=== PATIENT | female | born 1945 | race Caucasian/White ===

== ENCOUNTER → 2023-11-08 11:57 | Outpatient (CLI) | payer MEDICARE, SELFPAY ==
--- NOTE | 2023-11-08 12:42 | EKG_ITS ---
[address] [address] Test Date: 2023-11-08 Pat Name: Elvira Loyola Department: [facility] Room: Gender: Female Semiconductor Processing Technician: SANDI : 1945 Requested By: Order Number: [id number] Reading MD: George Hutchinson Measurements Intervals [place] Rate: 61 P: 36 DC: 168 QRS: 7 QRSD: 130 T: 44 QT: 474 QTc: 477 Interpretive Statements Normal sinus rhythm Right bundle branch block Inferior infarct , age undetermined Electronically Signed On 11-08-2023 12:58:08 PDT by George Hutchinson
[2023-11-08 13:45] LABS: Add Manual Diff / Slide Review NO; Basophils Absolute Auto 0 /uL (0-100); Basophils Percent Auto 0.6 % (0-2); Eosinophils Absolute Auto 200 /uL (0-450); Eosinophils Percent Auto 3.6 % (2-4); Hematocrit 41.7 % (36-46); Hemoglobin 14.2 g/dL (12.0-16.0); Lymphocytes Absolute Auto 1900 /uL (1100-4500); Lymphocytes Percent Auto 36.9 % (25-40); Mean Corpuscular HGB Conc 34.1 % (30-36); Mean Corpuscular Hemoglobin 31.7 PG (26-34); Mean Corpuscular Volume 92.8 fL (80-100); Monocytes Absolute Auto 500 /uL (0-900); Monocytes Percent Auto 10.3 % (3-14); Neutrophils Absolute Auto 2500 /uL (1500-7000); Neutrophils Percent Auto 48.6 % (50-75); Platelet Count 234 X10^3/uL (150-400); White Blood Cell Count 5.1 X10^3/uL (4.5-11.0)
[2023-11-08 13:59] LABS: Appearance Urine UA CLEAR; Bilirubin Urine UA NEGATIVE (NEGATIVE); Color Urine UA YELLOW; Glucose Urine UA NEGATIVE (Negative); Ketones Urine UA NEGATIVE (NEGATIVE); Leukocyte Esterase Urine UA NEGATIVE (NEGATIVE); Nitrite Urine UA NEGATIVE (Negative); Occult Blood Urine UA NEGATIVE (Negative); Protein Urine UA NEGATIVE (Negative); Urobilinogen Urine UA 0.2 E.U./dL (0.2)
[2023-11-08 14:11] LABS: BUN Creatinine Ratio 24.4 (6-22); Blood Urea Nitrogen 20 mg/dL (7-17); Carbon Dioxide 26 mmol/L (22-32); Chloride 103 mmol/L (98-107); Estimated Glomerular Filt Rate > 60 mL/min (>60); Glucose 96 mg/dL (80-110); HEMOLYSIS < 15 (0-50); Potassium 4.4 mmol/L (3.4-5.1); Sodium 138 mmol/L (137-145)
[2023-11-08 14:15] LABS: Hemoglobin A1C% w Est Avg Glu 5.4 % (4.0-6.0)
[2023-11-08 14:44] LABS: Bacteria Urine None Seen; Culture Indicated Urine Cult Not Indicated; RBC Urine None Seen (0-5/HPF); Squamous Epithelial Cell Urine None Seen (0-5/HPF); Urine Volume 10mL (spun); WBC Urine None Seen (0-5/HPF)
== END ==
LOC: LAB 12:01
PROVIDERS: PCP Family Medicine; Referring Provider Orthopaedic Surgery; Visit Provider Orthopaedic Surgery
DX: Z01.818 Encounter for other preprocedural examination (principal); R73.9 Hyperglycemia, unspecified; Z01.812 Encounter for preprocedural laboratory examination; N39.0 Urinary tract infection, site not specified
CPT/HCPCS: 36415; 80048; 81001; 83036; 85025; 93005

== ENCOUNTER 2023-12-05 06:09 | Day surgery (SDC) | payer MEDICARE, SELFPAY ==
[2023-11-30 08:30] VITALS: BMI 32.3
[2023-12-05] VITALS (12 sets, daily range): BP systolic 92–146; BP diastolic 42–83; PULSE 50–74; RESP 12–17; TEMP 36.2–36.6; O2SAT 94–100; BMI 31.9
--- NOTE | 2023-12-05 | DI.RAD.S_ITS ---
PROCEDURE: XR HIP W PEL IF DONE LT 2V INDICATIONS: LEFT LULA HIP, ANTERIOR TECHNIQUE: AP pelvis with lateral view(s) of the left hip(s). COMPARISON: [facility] JAIRO Shen, XR PELVIS WITH LATERAL HIP LEFT, 11/08/2023, 11:34. FINDINGS: Left hip arthroplasty projects in the expected location. IMPRESSION: Intraoperative guidance provided. Dictated by: Raúl Ambrose M.D. on 12/05/2023 at 11:04 Approved by: Raúl Ambrose M.D. on 12/05/2023 at 11:05
--- NOTE | 2023-12-05 06:00 | DI.RAD.S_ITS ---
PROCEDURE: XR HIP W PEL IF DONE LT 2V INDICATIONS: IRASEMA TECHNIQUE: AP pelvis and lateral view of the hip acquired. COMPARISON: [facility], CR, XR HIP W PEL IF DONE LT 2V, 12/05/2023, 9:22. FINDINGS: Bones: Patient is status post left hip arthroplasty, with hardware components in expected positions. The hip joint appears congruent. The visualized bony structures appear intact. Soft tissues: Overlying postoperative changes are noted. No suspicious soft tissue densities. IMPRESSION: Expected post-operative appearance of a hip arthroplasty. Approved by: Rivera Lamb M.D. on 12/05/2023 at 17:53
[2023-12-05] MEDS: VANCOMYCIN 1,000 MG/200 ML PIGGYBACK 200 MG IV (06:43)
[2023-12-05] MEDS: LACTATED RINGERS 1,000 ML 42 ML IV ×2 (06:45→10:14)
[2023-12-05] MEDS: ACETAMINOPHEN 325 MG TABLET 975 MG PO (06:59)
[2023-12-05] MEDS: CELECOXIB 200 MG CAPSULE PO (06:59)
[2023-12-05] MEDS: FAMOTIDINE 20 MG/2 ML VIAL IV (06:59)
--- NOTE | 2023-12-05 07:36 | P.HP_ITS ---
History of Present Illness History of Present Illness Date Patient Seen: 12/05/23 Time Patient Seen: 07:36 Chief complaint: Left IRASEMA anterior *OPB* Narrative: She continues to note ongoing constant left hip pain. She has popping clicking and a sense of instability. [facility] Medical History [place] (hard of hearing) H/O tear of meniscus of knee joint Surgical History H/O cataract extraction History of bunionectomy H/O repair of right rotator cuff (2017) Social History household members: spouse Smoking Status: Never smoker alcohol intake: former Meds Home Medications and Allergies Home Medications Medication Instructions Recorded Confirmed Type diphenhydramine 25 2 tab PO BEDTIME 11/30/23 12/05/23 History mg-acetaminophen 500 mg tablet (Tylenol PM Extra Strength) Allergies Allergy/AdvReac Type Severity Reaction Status Date / Time No Known Drug Allergies Allergy Verified 12/05/23 06:35 Review of Systems Review of Systems Narrative: No new fevers or chills continued left hip pain, no new heart problems or lung problems Exam Vital Signs (past 8 hours): - 12/05/23 06:53 Temperature 97.9 F Pulse Rate 74 Respiratory Rate 17 Blood Pressure 131/75 Pulse Oximetry 95 Oxygen Delivery Method Room Air Oxygen Delivery Method Room Air Narrative Exam Narrative: HEENT is benign lungs are clear general she is alert she is oriented cor regular rate and rhythm, abdomen soft and benign, lungs clear, left hip skin okay in the anterior hip, restricted range of motion left hip, hip flexion 100 20, external rotation 20 internal rotation 15 with moderate pain with maximum internal rotation neurologically intact distally Objective Labs Labs: X-rays show severe left hip OA Assessment & Plan Assessment and plan (1) Osteoarthritis of left hip: Status: Acute Plan I have recommended left total hip arthroplasty. The procedure options risks benefits and complications were discussed in detail including but not limited to bleeding, infection neurological problems, fracture recurrent instability and possible medical problems. She is having progressive worsening left hip pain and would like to proceed with a left total hip arthroplasty. Time-Based Coding :: [TOTAL MINUTES] spent with patient and on the chart (including review of chart, obtaining history, exam, reviewing outside data, placing orders, documenting exam and treatment plan, and counseling patient) on [DATE].
--- NOTE | 2023-12-05 07:40 | P.OP_ITS ---
Operative Date/Time/Diagnoses Date of procedure: 12/05/23 Time of procedure: 08:00 Pre-op diagnosis: Left hip OA Post-op diagnosis: same Procedure & Clinicians Procedure: Left total hip arthroplasty anterior approach Same procedure as scheduled: Yes Indications: The patient has had progressively worsening left hip pain with radiographic keys ges consistent with arthritis. Non-operative management has failed and the patient has requested total hip replacement. The risks, benefits and alternatives to surgery were discussed with the patient prior to proceeding. Risks discussed included, but were not limited to, failure to relieve pain, leg length discrepancy, dislocation, stiffness, infection, nerve damage, deep venous thrombosis, pulmonary embolism, stroke, coma, heart attack, permanent paralysis and , as well as the potential need for eventual revision of the prosthetic. Surgeon: Alma Delia Silva Soil Science Technical Officer: Anam Schreiber Anesthesia Type: General and Spinal Operative Notes Findings: Severe left hip OA, adequate stability, adequate Closure Type: primary Specimen(s): none sent Prosthetic devices, grafts, tissues, transplants, or devices: [employer] R3 size 48, neutral poly liner,one 6.5 mm screw, polar stem size 0 standard offset 32 by -3 cobalt chrome femoral head Estimated Blood Loss (mL): 250 Blood products transfused: none Procedure in detail: The patient was brought to the operating room. Patient was carefully positioned in the supine position. Time-out was performed and antibiotics were given. Anesthesia was induced. She was positioned in the on the table in order to allow hyperextension of the hip. The left lower extremity was prepped and draped in a standard sterile fashion. An anterior left hip incision was made 1 fingerbreadth lateral to the anterior superior iliac spine and extended distally towards the greater trochanter. Dissection was carried out through skin and subcutaneous tissues. Superficial hemostasis was achieved. The fascia over the tensor fascia stephen was defined and incised with a knife. Two Allis clamps were used to grasp the fascia. Tensor fascia stephen was retracted laterally. A gelpi retractor was placed. Dissection was carried out down along the neck. The circumflex vessels were carefully identified and cauterized with the Aqua Mantis. A PA was used during the procedure and was essential for intraoperative retraction and safe implantation of the components. There was good visualization of the femoral neck. A Cobra was placed superior to the neck and the gluteus fibers were carefully stripped from that superior aspect of the capsule. A 2nd retractor was placed along the inferior aspect of the neck. The rectus insertion along the capsule was partially released. A 3rd retractor that was then gently placed over the rim of the acetabulum under the rectus. Capsule was carefully incised and released from the intertrochanteric line circumferentially superior to the mid sagittal line and inferiorly to the mid sagittal line until the lesser trochanter was palpable. A tag stitch was placed both in the superior and inferior limb of the capsular insertion. Along the acetabulum capsule was also released up to the mid sagittal 12:00 position. A portion of the labrum was resected. A saw was used to perform an osteotomy at the level of the intertrochanteric line and the junction of the superior femoral neck leaving approximately 1 finger breath of residual inferior neck above the lesser trochanter. A 2nd cut was made along the femoral neck at the base of the head and a napkin ring of neck was removed. Corkscrew was placed in the femoral head and the head was removed without difficulty. Retractors were then repositioned around the acetabulum. Residual labrum was resected and additional osteophytes were rem arun. A reamer that was 4 mm below the templated size was placed by hand in the acetabulum and it was reamed to centralize the acetabulum. It was then reamed up to 2 under the templated size and fluoroscopy was brought in to confirm the position of the reaming and depth of reaming. I reamed 1 under the anticipated size. A trial cup was placed and noted that it was appropriately sized and fluoroscopy confirmed position and depth. The component was open and inserted without difficulty fluoroscopic imaging was used to confirm that the cup had been adequately seated and was well positioned. It was further stabilized with a single screw. Neutral poly liner was placed. The cup was tested and noted to be stable. Attention was then directed to the femur. The femur was gently hyperextended add itional capsular release was performed as needed in order to allow adequate visualization of the proximal femur with elevation of the femur. Patient was placed in a hyperextended slightly adducted position with maximum external rotation. Box osteotome was used to check for any residual neck as well as sclerotic bone along the trochanter. [place] pepper was placed in the femur. Additional broaching was performed. Canal finder was used to determine the alignment of the canal and position. Size 1 broach was placed. The canal was then appropriately broached up to the templated size as long as there was adequate stability of the broach and serial advancement of the broach without excessive impingement. Specific attention was directed at avoiding varus attempting to direct the distal aspect of the broach more anteriorly and avoiding excessive anteversion. Trial reduction showed acceptable range of motion, good stability, no posterior impingement, anabaptism of leg length and appropriate lateral shuck. I also hyperflexed the hip and checked that there was no impingement anteriorly and there was good stability with flexion, adduction and internal rotation. Marcaine and Exparel were injected. The stem was placed without difficulty. Repeat trial reduction and x-ray showed acceptable overall position, length, and no evidence of the femoral fracture. Final head was placed. Wound was m eticulously irrigated with normal saline. The hip was reduced and additional Exparel and Marcaine were injected. The capsule was closed with interrupted nonabsorbable sutures. The fascia of the tensor was closed with interrupted and running Vicryl. No drain was placed. Any tensor fascia stephen muscle that appeared to be contused or injured which was a minimal amount was carefully resected. Capsule around the tensor was injected with Exparel and Marcaine. The skin was closed with barbed stitches for the subcutaneous tissue and skin. We also used surgical glue. The wound was dressed sterilely. Brief Betadine soak was also used and was meticulously irrigated with normal saline. Patient was transferred to recovery room in satisfactory condition. Complications: none Post-operative Condition: stable Disposition: Acute Care Plan for aftercare: The patient will be maintained on a standard total hip replacement protocol with weight bearing as tolerated and anterior hip precautions. The patient will receive Aspirin and sequential compression devices for DVT prophylaxis. The patient will be discharged home when safe for the home environment.
[2023-12-05] MEDS: CEFAZOLIN 2 GM/100 ML PREMIX 100 ML IV ×3 (08:01→23:37)
[2023-12-05] MEDS: TRANEXAMIC ACID 1,000 MG VIAL 1000 MG INJ ×2 (08:01→09:40)
--- NOTE | 2023-12-05 08:26 | SUR.OPER ---
Supine on padded [place] table with bilateral legs secured in padded positioning boots and suspended in positioning spars, operative leg in traction per surgeon. Head on one pillow. Arm on non-operative side secured on padded armboard <90 degrees abduction. Arm on operative side padded and resting across chest then secured with tape over sheet. Padded perineal post in place per surgeon.
[2023-12-05] MEDS: BUPIVACAINE LIPOSOME 266 MG/20 ML VIAL INJ (08:37)
[2023-12-05] MEDS: BUPIVACAINE 0.25% (PF) 60 ML, EPINEPHrine 0.3 MG INJ (08:37)
[2023-12-05] MEDS: OXYCODONE IR 5 MG TABLET PO ×2 (12:57→18:52)
[2023-12-05] MEDS: ACETAMINOPHEN 325 MG TABLET 650 MG PO (12:58)
[2023-12-05] MEDS: LACTATED RINGERS 1,000 ML 100 ML IV (12:58)
[2023-12-05] MEDS: IBUPROFEN 400 MG TABLET PO ×2 (14:31→21:27)
--- NOTE | 2023-12-05 14:45 | PT.IIE ---
Current Diagnoses Unilateral primary osteoarthritis, left hip (12/05/23) Surgery Performed Operation Date: 12/05/23 07:45 Actual Procedures p Total Hip Arthroplasty/Anterior Approach(Left) - Alma Delia Silva MD Surgical History (Last Reviewed 12/05/23 @ 07:37 by Alma Delia Silva MD) H/O cataract extraction H/O repair of right rotator cuff (2016) History of bunionectomy Medical History (Last Reviewed 12/05/23 @ 07:37 by Alma Delia Silva MD) H/O tear of meniscus of knee joint [place] (hard of hearing) Physical Therapy Inpatient Evaluation/Re-Eval M1 PT/OT-IP Prior Functional Status Start: 12/05/23 16:50 Freq: NEEDED Status: Active Protocol: Document 12/05/23 14:45 AB (Rec: 12/05/23 17:08 AB [id number]) Medical Review Prior Functional Status Medical History Reviewed Yes Communication able to make needs known Mobility and Gait pt stated that she was independent with all mobilities and ambulation without AD Social History Household Members spouse Living Arrangements House Number of Floors (Floors) Two Floors Number of Stairs To Enter/Railing? pt will stay on main level of the house has 2 steps R rail ascending to enter Home Environment High Toilet,Walk in Shower Home Equipment Front Wheel Walker M2 PT-IP Current Condition Start: 12/05/23 16:50 Freq: NEEDED Status: Active Protocol: Document 12/05/23 14:45 AB (Rec: 12/05/23 17:08 AB [id number]) Physical Therapy Current Condition Current Condition Evaluation Date 12/05/23 Treatment Diagnosis s/p L IRASEMA anterior; difficulty in walking Onset Date 12/05/23 M3 PT-IP Subjective Start: 12/05/23 16:50 Freq: NEEDED Status: Active Protocol: Document 12/05/23 14:45 AB (Rec: 12/05/23 17:08 AB [id number]) Subjective Physical Therapy Visit Type Type Initial Evaluation Visit Start Time 14:45 Visit Stop Time 15:40 Number of MARKETING PERFORMANCE ANALYST Visits 0 Physical Therapy Visit Comments Patient Comments agreeable to do PT Therapy Pain Assessment Pain When Pain Assessed At Rest Pain Present Pain Present Pain Reported Location Left Hip Intensity 8 Scale Used Numeric (0 - 10) Pain Management Techniques Apply Cold,Distraction, Modification of Treatment,Re- positioning,Timing of Activity with Medications M4 PT-IP Mobility and Gait Start: 12/05/23 16:50 Freq: NEEDED Status: Active Protocol: Document 12/05/23 14:45 AB (Rec: 12/05/23 17:08 AB [id number]) PT-Bed Mobility Assessment Supine to Sit Supine to Sit Minimal Assistance PT-Transfer Assessment Sit to and From Stand Sit to and from Stand Minimal Assistance,1 Person Assistance,Use of Upper Extremities Equipment Transfer Assistive Device Gait Belt,Front Wheeled Walker Orthotic/Prosthetic Devices or Brace: No Transfers Transfer Destination Toilet Transfer Technique ambulated Transfer Ability Level of Assist Minimal Assistance,1 Person Assistance,Use of Upper Extremities Comments Mobility Comments pt supine in bed. spouse in room. pt agreeable to do PT. obtained PLOF and home set up from pt and spouse. post-op folder provided and reviewed contents with pt. educated pt regarding L hip anterior precautions. BP in supine: 143/83. pt completed supine to sit min A with LLE and max cues for techniques. able to sit on EOB SBA. c/o initial dizziness but decreased after a few minutes of sitting. BP checked: 144/59. pt completed sit to stand min A and ambulated to the toilet using FWW min A and occasional cues for precautions. sit to stand from the toilet using grab bar min A and pt ambulated towards the sink using FWW min A and was able to maintain standing CGA while completing handwashing. pt ambulated to the chair using fWW min A. positioned pt on the chair. call light and table placed within reach. caregiver training set up with spouse: 9am tomorrow. pt stated that she does not think she is ready to go home tomorrow. due to increase hip pain. Gait Assessment Gait Gait Assistance Required: Minimum Assistance Distance (Feet) 20 Able to Maintain Weight Bearing Status Yes During Gait Assistive Devices Assistive Device Gait Belt,Front Wheeled Walker Orthotic/Prosthetic Devices or Brace: No Gait Deviations General Gait Pattern Antalgic,Decreased Feet Clearance Factors Limiting Gait Function Factors Limiting Gait Function Decreased Activity Tolerance, Decreased Strength,Difficulty Following Directions,Limited Range of Motion,Pain,Poor Balance,Poor Safety Awareness PT-Balance Assessment Sitting Balance and Reactions Static Sitting Balance Ability Good Dynamic Sitting Balance Ability Good Standing Balance and Reactions Static Standing Balance Ability Fair Dynamic Standing Balance Ability Fair Device Used FWW M5 PT-IP Objective Assessments Start: 12/05/23 16:50 Freq: NEEDED Status: Active Protocol: Document 12/05/23 14:45 AB (Rec: 12/05/23 17:08 AB [id number]) Orientation Orientation/Cognition Level of Alertness Alert Orientation Name,Place,Situation Language Function Ability Hard of Hearing Safety Awareness Decreased Safety Awareness Memory Description Short Term Impaired Gross Range of Motion Lower Extremity ROM Assessment Within Functional Limits Strength Lower Extremity Strength Assessment Left Impaired Hip 3-/5 Knee 4-/5 Sensation Assessment Sensation Gross Sensation WNL Muscle Tone Muscle Tone WNL Yes M6 PT-IP Treatment Start: 12/05/23 16:50 Freq: NEEDED Status: Active Protocol: Document 12/05/23 14:45 AB (Rec: 12/05/23 17:08 AB [id number]) Physical Therapy Treatment Exercises Exercises Heel Slides Education Education Provided Precautions,Weight Bearing Status,Post-Op Packet,Safety M7 PT-IP Assessment and Plan Start: 12/05/23 16:50 Freq: NEEDED Status: Active Protocol: Document 12/05/23 14:45 AB (Rec: 12/05/23 17:08 AB [id number]) PT Summary Assessment and Plan Potential Rehabilitation Potential Fair Status of Condition at Evaluation Evolving Summary Impairments Pain,ROM,Strength,Balance, Coordination,Sensation,Tone, Cognition,Bed Mobility, Transfers,Gait,Activity Tolerance Assessment Summary pt is an 78 y/o F s/p L IRASEMA anterior approach POD 0. pt has L hip anterior precautions and is WBAT. pt requiring min A with mobility using FWW and will likely progress during hospital stay. caregiver training set up for tomorrow at 9 am Goals Bed Mobility Goal Independent Transfer Goal Independent,Front Wheeled Walker Gait Goal Independent,Front Wheel Walker Gait Distance 200 Other Goals up/down 2 steps R rail ascending SBA Days to Meet Goals 5 Frequency of Treatment Frequency Of Treatment Twice a Day Treatment Plan Physical Therapy Treatment Plan Bed Mobility Training,Transfer Training,Gait Training, Therapeutic Exercise,Balance Retraining,Post Op Education, Discharge Planning,Hot or Cold Pack,Neuromuscular Re-ed, Coordination Retraining,Manual Therapy Other Recommendations and Next Treatment Caregiver trainin12/06/23 @ [facility] 9 am Precautions Anterior Hip Precautions No Hip Extension,No Hip External Rotation Weight Bearing Status Weight Bearing Status Weight Bear as Tolerated Allowed Weight Bearing Amount (enter % LLE wBAT or #) (%) Recommendations To Nursing Amount of Assist Needed 1 Person Assist Discharge Recommendations PT Discharge Recommendations Home with Assistance, Outpatient PT Transportation Needs at Discharge Private Vehicle
--- NOTE | 2023-12-05 16:45 | OT.IP.EVAL ---
Current Diagnoses Unilateral primary osteoarthritis, left hip (12/05/23) Surgery Performed Operation Date: 12/05/23 07:45 Actual Procedures p Total Hip Arthroplasty/Anterior Approach(Left) - Alma Delia Silva MD Past Medical History (Last Reviewed 12/05/23 @ 07:37 by Alma Delia Silva MD) H/O tear of meniscus of knee joint [place] [employer] [place] (hard of hearing) Surgical History (Last Reviewed 12/05/23 @ 07:37 by Alma Delia Silva MD) H/O cataract extraction H/O repair of right rotator cuff (2017) History of bunionectomy Occupational Therapy Inpatient Evaluation/Re-Eval M2 OT-IP Current Condition Start: 12/05/23 16:37 Freq: Status: Active Protocol: Document 12/05/23 16:50 [facility] (Rec: 12/05/23 17:04 [facility] [id number]) Occupational Therapy Current Condition Current Condition Evaluation Date 12/05/23 Treatment Diagnosis S/P L IRASEMA anterior approach Diagnosis Onset Date 12/05/23 Post Operative Precautions Anterior Hip Precautions No Hip Extension,No Hip External Rotation M3 OT- IP Subjective and Pain Start: 12/05/23 16:37 Freq: Status: Active Protocol: Document 12/05/23 16:50 [facility] (Rec: 12/05/23 17:04 [facility] [id number]) OT- Subjective Occupational Therapy Visit Type Type Initial Evaluation Visit Start Time 16:15 Visit Stop Time 16:45 Occupational Therapy Visit Comments Patient Comments Pt not wanting to get up as just got comfortable but agreed to do OT eval. Patient/Caregiver Goals To go home. OT Pain Assessment Pain When Pain Assessed During Mobility Pain Present Pain Present Pain Reported Location Left Hip Intensity 5 Scale Used Numeric (0 - 10) M4 OT- IP ADL's Start: 12/05/23 16:37 Freq: Status: Active Protocol: Document 12/05/23 16:50 [facility] (Rec: 12/05/23 17:04 [facility] [id number]) OT [id number] Comments OT Self-Feeding Comments No needs. OT ADL-Grooming Comments OT Grooming Comments NO needs. OT ADL-Oral Care Comments Oral Care Comments Pt declined. OT ADL-Dressing General Eval Lower Body Dressing Ability Maximum Assistance Areas Needing Assistance Socks Comments OT Dressing Comments Educated best to dress the LLE first and take out last. Showed and practiced use of LB dressing equipment for the pt . OT ADL-Toileting Comments OT Toileting Comments Educated pt to be mindful of her LLE positioning needs especially during toileting, dressing , and bathing needs. Spoke of use of brief/pads at night. Helpful to get a BSC if needed. OT ADL-Bathing Comments OT Bathing Comments Pt will benefit from a shower chair and HHPS. Pt states will probably just sponge off initially. M5 OT- IP IADL's Start: 12/05/23 16:37 Freq: Status: Active Protocol: Document 12/05/23 16:50 [facility] (Rec: 12/05/23 17:04 [facility] [id number]) OT-Instrumental Activities of Daily Living Deficits IADL Deficits Identified Deficits Home Safety Awareness Awareness of Need for Assistance at Home Good Awareness Ability to Problem Solve Emergency Able to Problem Solve Situations Meal Preparation Meal Preparation Caregiver Provides Assist Director Of Corporate Real Estate Director Of Corporate Real Estate Caregiver Provides Assist M6 OT- IP Functional Cognition Start: 12/05/23 16:37 Freq: Status: Active Protocol: Document 12/05/23 16:50 [facility] (Rec: 12/05/23 17:04 [facility] [id number]) Cognitive Factors Limiting Selfcare Function Cognitive Ability Level of Alertness Alert Patient Orientation Name,Age,Birthday,Month,Date, Year,Day of Week,Place, Situation Attention Span Ability Capable of Focused Attention, Capable of Sustained Attention Ability to Follow Commands Able to Follow One Step Commands Cognitive Comments Cognitive Assessment Comments Pt able to recall her hip precautions. OT- Vision and Hearing OT- Hearing Assessment OT- Hearing Assessment Hearing Impaired,Use of Hearing Aids OT- Vision Assessment Visual Acuity Glasses For Reading Visual Attentiveness WFL Occular Pursuits WFL M7 OT- IP Mobility and Balance Start: 12/05/23 16:37 Freq: Status: Active Protocol: Document 12/05/23 16:50 [facility] (Rec: 12/05/23 17:04 [facility] [id number]) OT-Transfer Assessment Comments Mobility Comments Pt not wanting to get up at this time, therefore please see PT eval. Pt states was able to get the bathroom earlier with assist. OT- Balance Assessment Sitting Balance and Reactions Static Sitting Balance Ability Good Dynamic Sitting Balance Ability Good M8 OT- IP Objective Assessments Start: 12/05/23 16:37 Freq: Status: Active Protocol: Document 12/05/23 16:50 [facility] (Rec: 12/05/23 17:04 [facility] [id number]) OT Gross Range of Motion Upper Extremity Range of Motion Assessment Within Functional Limits OT Strength Upper Extremity Strength Assessment Within Functional Limits M9 OT- IP Assessment and Plan Start: 12/05/23 16:37 Freq: Status: Active Protocol: Document 12/05/23 16:50 [facility] (Rec: 12/05/23 17:04 [facility] [id number]) OT Summary Assessment and Plan Potential Rehabilitation Potential Excellent Analytic Complexity at Evaluation Low Summary OT Impairments Pain,Balance,Functional Mobility,Dressing,Toileting, Bathing,Toilet Transfers, Shower Transfers Progress Towards Goals Progressing Toward Goals Assessment Summary Pt low complexity and main barriers are pain and steps. Pt states her to be able to assist with all her needs. Able to practice LB dressing equipment and pt considering getting some. Otherwise pt to go home with assist when medically stable and attend outpt PT. Goals Dressing Goal Independent Toileting Goal Independent Bathing Goal Standby Assistance Toilet Transfer Goal Independent Shower Transfer Goal Standby Assistance Days to Meet Goals 7 Frequency of Treatment Other frequency 5x/week Treatment Plan OT Treatment Plan ADL Training,Functional Mobility,Patient/Family Education,Discharge Planning Discharge Recommendations OT Discharge Recommendations Home with Assistance, Outpatient PT Home Equipment Needs LB dressing equipment, BSC, shower chair
[2023-12-05] MEDS: ASPIRIN EC 81 MG TABLET PO (21:26)
[2023-12-05] MEDS: diphenhydrAMINE 25 MG TABLET 50 MG PO (21:26)
[2023-12-05] MEDS: DOCUSATE 100 MG CAPSULE PO (21:27)
[2023-12-06] MEDS: OXYCODONE IR 5 MG TABLET PO (02:10)
[2023-12-06] MEDS: ACETAMINOPHEN 325 MG TABLET 650 MG PO ×2 (02:10→08:14)
[2023-12-06 06:47] LABS: Hematocrit 33.3 % (36-46); Hemoglobin 11.2 g/dL (12.0-16.0)
[2023-12-06 08:00] VITALS: BP 104/46; PULSE 61; RESP 18; TEMP 36.4; O2SAT 96
[2023-12-06] MEDS: ASPIRIN EC 81 MG TABLET PO (08:15)
[2023-12-06] MEDS: DOCUSATE 100 MG CAPSULE PO (08:15)
--- NOTE | 2023-12-06 09:00 | PT.IPTN ---
Current Diagnoses Unilateral primary osteoarthritis, left hip (12/05/23) Surgery Performed Operation Date: 12/05/23 07:45 Actual Procedures p Total Hip Arthroplasty/Anterior Approach(Left) - Alma Delia Silva MD Physical Therapy Treatment Note M2 PT-IP Current Condition Start: 12/05/23 16:50 Freq: NEEDED Status: Discharge Protocol: Document 12/05/23 14:45 [facility] (Rec: 12/05/23 17:08 [facility] [id number]) Physical Therapy Current Condition Current Condition Evaluation Date 12/05/23 Treatment Diagnosis s/p L IRASEMA anterior; difficulty in walking Onset Date 12/05/23 M3 PT-IP Subjective Start: 12/05/23 16:50 Freq: NEEDED Status: Discharge Protocol: Document 12/06/23 09:00 [facility] (Rec: 12/06/23 14:18 AB [id number]) Subjective Physical Therapy Visit Type Type Treatment Note Visit Start Time 09:00 Visit Stop Time 09:51 Number of APPRENTICE COOK Visits 0 Physical Therapy Visit Comments Patient Comments agreeable to do PT Therapy Pain Assessment Pain When Pain Assessed At Rest Pain Present Pain Present Pain Reported Location Left Hip Intensity 4 Scale Used Numeric (0 - 10) Pain Management Techniques Apply Cold,Distraction, Modification of Treatment,Re- positioning,Timing of Activity with Medications M4 PT-IP Mobility and Gait Start: 12/05/23 16:50 Freq: NEEDED Status: Discharge Protocol: Document 12/06/23 09:00 [facility] (Rec: 12/06/23 14:18 [facility] [id number]) PT-Bed Mobility Assessment Supine to Sit Supine to Sit Standby Assistance Sit to Supine Sit to Supine Standby Assistance PT-Transfer Assessment Sit to and From Stand Sit to and from Stand Standby Assistance,Contact Guard Assistance,1 Person Assistance,Use of Upper Extremities Equipment Transfer Assistive Device Gait Belt,Front Wheeled Walker Orthotic/Prosthetic Devices or Brace: No Transfers Transfer Destination Chair,Toilet Transfer Technique ambulated Transfer Ability Level of Assist Standby Assistance,Contact Guard Assistance,1 Person Assistance,Use of Upper Extremities Comments Mobility Comments pt supine in bed. spouse in room. pt agreed todo PT. BP in supine: 120/44. pt able to recall 1/2 precautions. educated again on hip precautions. recalled 2/2 afterwards. completed bed mobility supine<>sit x 2 sets SBA max cues initially but able to complete without afterwards. pt able to sit on EOB. no c/o dizziness. BP 120/48. caregiver training conducted. educated spoue on how to use safety belt and how to assist pt. spouse was able to put safety belt on pt. assisted pt with sit to stand CGA and ambulation in room SBA to CGA using FWW. pt sat back o chair. BP checked: 120/54. pt agreed to do stairs. spouse assisted pt with sit to stand from chair CGA and ambulated in the hallway ~ 100 ft using FWW SBA to CGA. stair training. educated pt and spouse on how to do stairs . pt completed up/down step using R rail ascending CGA with spouse assisting. pt ambulated back to her room using FWW SBA to CGA. pt requested to use the toilet and ambulated to the toilet using FWW. spouse assisted pt out from the toilet and back to the chair using fWW. positioned pt on the chair. call light and table placed within reach. BP at end of PT session: 120/41. pt and spouse without further concerns. Gait Assessment Gait Gait Assistance Required: Standby Assistance,Contact Guard Assist Distance (Feet) 100 Able to Maintain Weight Bearing Status Yes During Gait Assistive Devices Assistive Device Gait Belt,Front Wheeled Walker Orthotic/Prosthetic Devices or Brace: No Gait Deviations General Gait Pattern Antalgic,Decreased Stride Length Factors Limiting Gait Function Factors Limiting Gait Function Decreased Activity Tolerance, Decreased Strength,Limited Range of Motion,Pain,Poor Balance,Poor Safety Awareness Stair Climbing Assessment Evaluation Level of Assist On Stairs Contact Guard Assistance Devices Stair Climbing Assistive Devices Right Railing Technique/Endurance Stair Climbing Direction Ascend and Descend Stair Climbing Technique Step to Step Number of Steps Climbed 3 Stair Climbing Set # Repetitions (reps) 1 M5 PT-IP Objective Assessments Start: 12/05/23 16:50 Freq: NEEDED Status: Discharge Protocol: Document 12/05/23 14:45 [facility] (Rec: 12/05/23 17:08 AB [id number]) Orientation Orientation/Cognition Level of Alertness Alert Orientation Name,Place,Situation Language Function Ability Hard of Hearing Safety Awareness Decreased Safety Awareness Memory Description Short Term Impaired Gross Range of Motion Lower Extremity ROM Assessment Within Functional Limits Strength Lower Extremity Strength Assessment Left Impaired Hip 3-/5 Knee 4-/5 Sensation Assessment Sensation Gross Sensation WNL Muscle Tone Muscle Tone WNL Yes M6 PT-IP Treatment Start: 12/05/23 16:50 Freq: NEEDED Status: Discharge Protocol: Document 12/06/23 09:00 AB (Rec: 12/06/23 14:18 AB [id number]) Physical Therapy Treatment Education Education Provided Precautions,Safety M7 PT-IP Assessment and Plan Start: 12/05/23 16:50 Freq: NEEDED Status: Discharge Protocol: Document 12/06/23 09:00 [facility] (Rec: 12/06/23 14:18 AB [id number]) PT Summary Assessment and Plan Potential Rehabilitation Potential Good Summary Impairments Pain,ROM,Strength,Balance, Coordination,Sensation,Tone, Cognition,Bed Mobility, Transfers,Gait,Activity Tolerance Progress Towards Goals Progressing Toward Goals Assessment Summary caregiver training conducted and spouse was able to assist pt . pt plans to go home and may go home when medically stable. Goals Bed Mobility Goal Independent Transfer Goal Independent,Front Wheeled Walker Gait Goal Independent,Front Wheel Walker Gait Distance 200 Other Goals up/down 2 steps R rail ascending SBA Days to Meet Goals 5 Frequency of Treatment Frequency Of Treatment Twice a Day Treatment Plan Physical Therapy Treatment Plan Bed Mobility Training,Transfer Training,Gait Training, Therapeutic Exercise,Balance Retraining,Post Op Education, Discharge Planning,Hot or Cold Pack,Neuromuscular Re-ed, Coordination Retraining,Manual Therapy Precautions Anterior Hip Precautions No Hip Extension,No Hip External Rotation Weight Bearing Status Weight Bearing Status Weight Bear as Tolerated Allowed Weight Bearing Amount (enter % LLE wBAT or #) (%) Recommendations To Nursing Amount of Assist Needed 1 Person Assist Discharge Recommendations PT Discharge Recommendations Home with Assistance, Outpatient PT Transportation Needs at Discharge Private Vehicle
--- NOTE | 2023-12-06 09:57 | P.DS_ITS ---
History of Present Illness History of Present Illness Date Patient Seen: 12/06/23 Time Patient Seen: 09:57 Chief complaint: Left IRASEMA anterior *OPB* Narrative: The patient has had progressively worsening left hip pain with radiographic changes consistent with arthritis. Non-operative management has failed and the patient has requested total hip replacement. The risks, benefits and alternatives to surgery were discussed with the patient prior to proceeding. Risks discussed included, but were not limited to, failure to relieve pain, leg length discrepancy, dislocation, stiffness, infection, nerve damage, deep venous thrombosis, pulmonary embolism, stroke, coma, heart attack, permanent paralysis and , as well as the potential need for eventual revision of the prosthetic. Discharge Providers Provider Discharge Date: 12/06/23 Primary care physician: Nishant Ralph MD Consults: 12/05/23 06:00 Consult to Anesthesiology Routine Comment: Consulting Provider: Anesthesiologist Reason for consultation: Regional block for post operative pain control Has provider been notified: No 12/05/23 12:26 Consult to Discharge Planning Routine Comment: Consult to Occupational Therapy Evaluate & Treat Comment: Physician Instructions: Evaluate and treat Consult to Physical Therapy Evaluate & Treat Comment: Physician Instructions: post op IRASEMA protocol Discharge provider: Montez Martinez PA-C Summary Hospital Course Discharge Diagnosis: Left hip OA Hospital Course: Procedure & Clinicians Procedure: Left total hip arthroplasty anterior approach Same procedure as scheduled: Yes Surgeon: Alma Delia Silva Drive [employer] Repairer: Dionna Martinez Anesthesia Type: General and Spinal Operative Notes Findings: Severe left hip OA, adequate stability, adequate Closure Type: primary Specimen(s): none sent Prosthetic devices, grafts, tissues, transplants, or devices: Silva [employer]hew R3 size 48, neutral poly liner,one 6.5 mm screw, polar stem size 0 standard offset 32 by -3 cobalt chrome femoral head Estimated Blood Loss (mL): 250 Blood products transfused: none Status at Discharge Cognitive/behavioral status at discharge: oriented Functional status at discharge: uses cane/walker Overall status at discharge: patient is back to baseline Time Spent with Patient Time spent: Less than 30 minutes Exam Vital Signs (past 8 hours): - 12/06/23 08:00 Temperature 97.6 F Pulse Rate 61 Respiratory Rate 18 Blood Pressure 104/46 L Pulse Oximetry 96 Oxygen Flow Rate 0 Oxygen Delivery Method Room Air Oxygen Flow Rate 0 Narrative Exam Narrative: Patient is found sitting comfortably in chair. She is just finished physical therapy. She is able to ambulate across the king twice and up and down 4 sets of stairs. She feels ready to be discharged home. Denies any new numbness tingling down either extremity. Denies any nausea vomiting fever or chills. Objective Labs 12/06/23 06:23 Labs: Laboratory Results - last 24 hr 12/06/23 06:23 Hgb 11.2 L Hct 33.3 L PFSH Medical History [facility] (hard of hearing) H/O tear of meniscus of knee joint Surgical History H/O cataract extraction History of bunionectomy H/O repair of right rotator cuff (2017) Social History household members: spouse Smoking Status: Never smoker alcohol intake: former Discharge Assessment & Plan Assessment and Plan Assessment: Status post left hip arthroplasty anterior approach Plan of Treatment: Discharge to home. Multimodal pain control with ibuprofen 400 mg and acetaminophen 500 mg q.4 hours PRN. Patient is prescribed oxycodone 5 mg q.4 hours PRN for postoperative breakthrough pain. Patient prescribed Zofran 4 mg Q 8 hours as needed postoperative nausea. Aspirin 81 mg b.i.d. for 6 weeks for DVT prophylaxis. Ambulate with assistive devices. Initiate postoperative PT in the next 5-10 days. Anterior hip precautions. Follow up at [facility] in 2 weeks for wound check. Discharge Plan Discharge Plan Patient Disposition: Home Discharge orders & Medications Discharge Orders: Discharge (Order); Ordered 12/06/23 Ordered By: Montez Martinez Prescriptions: New acetaminophen 325 mg Tablet 650 mg PO Q6H PRN (Reason: Fever/Mild Pain (1-3)) Qty: 100 0RF aspirin 81 mg Tablet,Delayed Release (Dr/Ec) 81 mg PO BID Qty: 90 0RF ibuprofen 400 mg Tablet 400 mg PO Q4H PRN (Reason: Pain, Mild (1-3)) Qty: 100 0RF ondansetron 4 mg Tablet,Disintegrating 4 mg PO Q8HR Qty: 10 1RF oxycodone 5 mg Tablet 5 mg PO Q4HR PRN (Reason: Pain, Moderate (4-6)) Qty: 30 0RF Continued diphenhydramine-acetaminophen [Tylenol PM Extra Strength] 25-500 mg Tablet 2 tab PO BEDTIME Follow up/Referrals: Patrick Ralph MD [Primary Care Provider] - Diet/Activity/Treatments Diet: Diet as Tolerated Activity: Ambulate multiple times a day. Use a cane or walker as needed. Full weight on leg. Cold/Heat Therapy: Use ice multiple times a day. Skin/Wound/Dressing Care Skin care: Leave dressing on. Okay to shower Report to your healthcare provider any signs of infection, such as:: chills, fever, night sweats, unusual drainage and unusual redness Dressing: May shower. Leave dressing in place until follow up in office. No bathing or otherwise soaking incision. Call the office if the dressing becomes saturated inside. Visit Report/Discharge Packet Instructions: DI for Hip Replacement, DI for Prescription Opioid Use Stand Alone Forms: Patient Portal/API Discharge Data Primary Care Provider: Patrick Ralph Attending Provider: Alma Delia Silva VTE Deep Vein Thrombosis/Pulmonary Embolism Present on Admission: No
--- NOTE | 2023-12-06 11:16 | CM.DANOTE ---
Patient admitted for left IRASEMA, chart reviewed and discussed in rounds. Patient to d/c home with outpatient PT already arranged, no needs identified, PT eval confirms. TIMOTEO Ma Discharge Planning/Care Management Pre-Anesthesia Assessment Start: 11/30/23 08:30 Freq: Status: Discharge Protocol: Document 11/30/23 08:30 LB (Rec: 11/30/23 09:34 LB [id number]) Pre-Anesthesia Assessment Patient Information Reviewed Via Phone Assessment Assessment Completed With Patient Diagnostic Results BMP/CMP,CBC,EKG,Urinalysis Comment 11/08/23 at . Primary Care Provider Patrick Ralph Medical Clearance Received Not Applicable Seen Specialist in Last 12 Months Yes Specialist Seen Orthopedist Primary Language Bahraini Preferred Language Bahraini Transmission Worker Required No Height 165.1 cm Weight 87.997 kg Body Mass Index (BMI) 32.3 Hearing Ability Use of Hearing Aid Visual Assist Glasses Dentition Type Teeth, Natural Present Barriers to Learning None Comment for reading. Hx Anesthesia Reactions No Hx Family Anesthesia Reaction No Hx Malignant Hyperthermia No Hx Blood Transfusions No Anesthesia Review Requested No Mergers And Acquisitions Associate No alcohol intake former Smoking Status Never smoker Substance Use Type does not use Pain Present Pain Reported Comment Left hip, sciatic pain occassionally. Musculoskeletal Symptoms Abnormal Gait History of Falling (Recent or History of No ) Patient is completely paralyzed or No completely immobile Prosthesis or Orthotic Device Front Wheel Walker Mental Status Oriented to own ability Comment Will bring walker. Is patient on oxygen? No Does patient have YEPEZ/SOB No Hx Sleep Apnea No CPAP/BIPAP use not prescribed Currently Taking a Beta Sylvie No Can You Climb a Flight of Stairs Without Yes SOB Hx Chest Pain No Hx SOB No Hx Syncope or Dizziness Yes: When stressed or haven't eaten and BP drops. Anti-Coagulant Therapy No Has a Computer Designer No Cardiac Testing Yes: EKG 11/08/23 Hx Pacemaker/ICD No Dysphagia No Urinary Catheter Present No Hx Urinary Self Catheterization No Diabetes No HgbA1C 5.4 Date 11/08/23 Patient No Lactating No Hx Drug Resistant Organism No Presence of External or Internal Medical Yes: Bilat IOL, teeth implants Devices (all) Have you had any close contact with No someone diagnosed with COVID-19? Are you experiencing any of these No symptoms symptoms? Received a COVID vaccine? Yes Marital Status Lives With spouse Current Living Arrangements House Number of Floors (Floors) Two Floors Number of Stairs To Enter/Railing? 2 stairs with railing to enter home, will not need to go up to bedroom. Support System Spouse Does the Patient Have Assistance After Yes Surgery Patient Discharge Plan Description Return Home Additional comment Advised same day surgery by Dr Silva. Emergency Contact Phone Number Quinton Loyola - Comment [phone] Advance Directives? No: In the process. PAC Instructions Assistance for 24 hours post- op,Durable medical equipment, Medications to take/avoid, Nasal antibiotic,No ETOH/ petroleum product on skin DOS, NPO,Post-op transportation,Pre -surgical wash,Sensory aids, Sturdy shoes/comfortable clothes,Do not bring valuables and remove jewelry
== END 2023-12-06 10:40 | disposition home or self-care (01) ==
LOC: OR 06:10 → AC 06:12
PROVIDERS: PCP Family Medicine; Referring Provider Orthopaedic Surgery; Visit Provider Orthopaedic Surgery
PROC: (CPT 27130; principal; 2023-12-05 07:45)
DX: M16.12 Unilateral primary osteoarthritis, left hip (principal); M25.752 Osteophyte, left hip
CPT/HCPCS: 27130; 73502; 76000; 85014; 85018; 97162; 97165; 97530; C1776; C9290; J0171; J0690; J2405; J2704; J3010